=== PATIENT | female | born 1975 | race Caucasian/White ===

== ENCOUNTER 2016-08-28 20:30 | Emergency (ER) | payer MEDICAID ==
[2016-08-28 20:33] VITALS: BP 124/72; PULSE 72; RESP 20; TEMP 98.4; O2SAT 98
[2016-08-28] MEDS ORDERED: Oxycodone/Acetaminophen 5/325 mg Tab PO STA (20:40)
[2016-08-28] MEDS ORDERED: Oxycodone/Acetaminophen 5/325 mg Tab ONE (20:43)
--- NOTE | 2016-08-28 21:31 | C.PDOC ---
History Of Present Illness 41 year old patient presents to the ED complaining of twisting her left ankle since 7 am. Patient states this morning she was walking down the stairs in her apartment building. She slipped and fell down the "broken" stairs hurting her ankle. Patient has been walking on her leg. The pain progressive became worse in the afternoon which prompted the visit. Patient denies any other injuries, numbness or weakness. Time Seen by Provider: 08/28/16 20:33 Chief Complaint (Nursing): Lower Extremity Problem/Injury History Per: Patient History/Exam Limitations: no limitations Onset/Duration Of Symptoms: Hrs (7 am today) Current Symptoms Are (Timing): Still Present Pain Scale Rating Of: 8 Recent travel outside of the [place]: No Additional History Per: EMS, Family - Knee Alleviating Factor(s): Elevation - Ankle/Foot Description Of Injury: Fell, Twisted Currently Unable To: Other Past Medical History Reviewed: Historical Data, Nursing Documentation, Vital Signs Vital Signs: Last Vital Signs Temp 98.4 F 08/28/16 20:30 Pulse 72 08/28/16 20:30 Resp 20 08/28/16 22:18 BP 124/72 08/28/16 20:30 Pulse Ox 98 08/28/16 22:03 Family History: States: Unknown Family Hx - Social History Hx Alcohol Use: No Hx Substance Use: No Review Of Systems Except As Marked, All Systems Reviewed And Found Negative. Musculoskeletal: Positive for: Other (left ankle pain) Neurological: Negative for: Weakness, Numbness Physical Exam - Physical Exam Appears: Non-toxic Skin: Warm, Dry Head: Atraumatic, Normacephalic Eye(s): bilateral: Normal Inspection Oral Mucosa: Moist Neck: Normal ROM, Supple Chest: Symmetrical Extremity: Normal ROM, No Calf Tenderness, Other (left ankle: swelling, tenderness and ecchymosis to the lateral aspect of the malleolus; normal pulses ; good capillary refill) Neurological/Psych: Oriented x3, Normal Speech, Normal Cognition, Normal Motor, Normal Sensation Gait: Steady ED Course And Treatment O2 Sat by Pulse Oximetry: 98 (RA) Pulse Ox Interpretation: Normal - Other Rad left ankle X-Ray: Interpreted by Me, Viewed By Me Interpretation: positive avulsion fracture to the distal left fibula left tibia/fibula X-Ray: Interpreted by Me, Viewed By Me Interpretation: positive avulsion fracture to the distal left fibula Progress Note: Left ankle, and left tibia/fibula x-ray taken. Percocet given. Orthopedic Time Out: Side verified (Left side), Site verified Procedure: Splint Type: Short, Posterior Consent obtained: Verbal Performed by: Mid-level Provider (Douglas) Diagnosis: Fracture Capillary refill: Normal Distal Sensation: Normal Distal Motor Function: Normal Capillary Refill: Normal Compartment: Normal Distal Sensation: Normal Distal Motor Function: Normal Patient tolerated procedure: Well Disposition - Disposition Referrals: Edin Castro MD [Staff Provider] - [facility] [Outside] Disposition: HOME/ ROUTINE Disposition Time: 21:42 Condition: GOOD Additional Instructions: Follow up with the Orthopedist within 1-2 days without fail. Return if worsened. Prescriptions: Acetaminophen [Tylenol] 325 mg PO Q6 PRN #30 tab PRN Reason: Pain, Moderate (4-7) traMADol [Ultram] 50 mg PO Q6 PRN #20 tab PRN Reason: Pain Instructions: Ankle Fracture (ED) - Clinical Impression Clinical Impression: Ankle fracture - PA / CHANNEL LIP WETTER / Resident Statement MD/DO has reviewed & agrees with the documentation as recorded. - Scribe Statement The provider has reviewed the documentation as recorded by the Scribe Riri Macias All medical record entries made by the Scribe were at my direction and personally dictated by me. I have reviewed the chart and agree that the record accurately reflects my personal performance of the history, physical exam, medical decision making, and the department course for this patient. I have also personally directed, reviewed, and agree with the discharge instructions and disposition.
--- NOTE | 2016-08-29 13:30 | RAD ---
PROCEDURE: Radiographs of the left tibia and fibula. HISTORY: injury and twist of left ankle COMPARISON: None available. TECHNIQUE: Frontal and lateral views obtained. FINDINGS: BONES: No evidence of fracture. Please see report of left ankle. JOINT SPACES: Unremarkable. OTHER FINDINGS: None. IMPRESSION: Unremarkable radiographs of the left tibia and fibula.
--- NOTE | 2016-08-29 13:30 | RAD ---
PROCEDURE: Left Ankle Radiographs. HISTORY: injury and pain COMPARISON: None FINDINGS: BONES: Ovoid smoothly corticated ossific densities adjacent to distal fibula, likely old avulsion fracture fragments versus ununited secondary ossification centers. No acute fracture identified. JOINTS: Normal. No osteoarthritis. Ankle mortise maintained. Talar dome intact SOFT TISSUES: Lateral soft tissue swelling noted peer OTHER FINDINGS: None. IMPRESSION: No definite fracture. Probable old avulsion fractures versus ununited ossification centers adjacent to distal fibula. Lateral soft tissue swelling noted.
== END 2016-08-28 22:18 | disposition home or self-care (01) ==
LOC: C.ER 20:30
DX: S82.892A Other fracture of left lower leg, initial encounter for closed fracture (principal); W10.9XXA Fall (on) (from) unspecified stairs and steps, initial encounter; Y92.039 Unspecified place in apartment as the place of occurrence of the external cause

== ENCOUNTER 2016-10-12 11:16 | Day surgery (SDC) | payer MEDICAID ==
[2016-09-18 11:54] VITALS: BMI 27.3
[2016-10-12] MEDS ORDERED: ceFAZolin IV 1 gm in Dextrose 0 GM/0 ML BAG IVPB ONE (13:21)
[2016-10-12] MEDS ORDERED: Bupivacaine HCl 0.25% PF (10 ml) Inj ONE (13:21)
[2016-10-12] MEDS ORDERED: Lidocaine 1% Inj (20ml) ONE (13:21)
[2016-10-12] MEDS ORDERED: Bupivacaine 0.5% Inj(30mL) ONE (13:21)
[2016-10-12] MEDS ORDERED: ceFAZolin IV 2 gm in Dextrose 1 GM/50 ML BAG IVPB ONE (13:21)
[2016-10-12] MEDS ORDERED: Lactated Ringer's 1,000 ML IV ONE ×2 (13:45→15:30)
[2016-10-12] MEDS ORDERED: Midazolam 2 MG/2 ML VIAL ONE ×2 (13:46→13:48)
[2016-10-12] MEDS ORDERED: Propofol 10 mg/ml Inj (20 ML) ONE (13:49)
[2016-10-12] MEDS ORDERED: Dexamethasone 4 mg/1 ml ONE (14:47)
--- NOTE | 2016-10-12 15:10 | PCM.SURG1 ---
Surgeon's Initial Post Op Note - Surgeon's Notes Surgeon: Dr. Sands Auditor Supervisor: Malu Otoole PGY-2 Type of Anesthesia: IV Sedation, Local Pre-Operative Diagnosis: Left ankle avulsion fracture with rupture of lateral ankle ligament Operative Findings: see dictation. M: arthrex internal brace. 3-0 vicryl, 4-0 vicryl, 4-0 monocryl Post-Operative Diagnosis: same Operation Performed: left ankle excision of fracture fragment, internal brace Specimen/Specimens Removed: none Estimated Blood Loss: EBL {In ML}: 0 Blood Products Given: N/A Drains Used: No Drains Post-Op Condition: Good Date of Surgery/Procedure: 10/12/16 Time of Surgery/Procedure: 02:15
[2016-10-12] MEDS ORDERED: Oxycodone/Acetaminophen 5/325 mg Tab PO PRN ×2 (15:11)
[2016-10-12] MEDS ORDERED: HYDROmorphone 0.5 mg/0.5 ml ISec IVP ONE (15:26)
[2016-10-12] MEDS: HYDROmorphone 0.5 mg/0.5 ml ISec IVP PRN ×2 (15:33→15:34)
[2016-10-12 17:14] VITALS: RESP 18; O2SAT 98
[2016-10-12 19:05] VITALS: BP 115/72; PULSE 76; TEMP 98
--- NOTE | 2016-10-13 11:35 | OP ---
PROCEDURE DATE: 10/12/2016 SURGEON: Dr. Karen Sands [employer] ATTENDANT: Malu Otoole, PGY-2 PREOPERATIVE DIAGNOSES: 1. Left ankle lateral malleolar avulsion fracture. 2. Left ankle calcaneofibular ligament rupture. POSTOPERATIVE DIAGNOSES: 1. Left ankle lateral malleolar avulsion fracture. 2. Left ankle calcaneofibular ligament rupture. NAME OF PROCEDURES: 1. Left ankle excision of fracture fragment. 2. Left ankle lateral ligament repair with internal brace. ANESTHESIA: General LMA. ANESTHESIOLOGIST: Dr. Albert INDICATIONS: The patient is a 41-year-old female with the above-mentioned diagnoses. The patient has exhausted conservative treatment at this time and is now requesting surgical intervention. The patient signed the consent after careful explanation of risks, benefits, complications and alternatives for surgical procedure. No guarantees were given nor implied. Ancef 2 g IV was given to the patient prior to the procedure. N.p.o. status was confirmed prior to taking the patient to the operating room. PREPARATION: The patient was brought into the operating room and placed on the operating room table in supine position. A well-padded pneumatic thigh tourniquet was placed to the patient's left thigh. After induction of anesthesia, the left lower extremity was prepped and draped in the usual sterile manner and the procedure began. PROCEDURE #1: Left ankle excision of fracture fragment. Attention was directed to the anterolateral aspect of the left ankle where a 3.5 cm curvilinear incision was created overlying the anterior aspect of the fibula and extending distally to the apex of the fibula. This incision was deepened down through the subcutaneous tissues with care being taken to identify and retract all vital neurovascular structures. All bleeders were cauterized and ligated as necessary. At this time, a periosteal and capsular incision was created overlying the distal aspect of the fibula. The capsular and periosteal structures were reflected laterally, thus exposing the distal portion of the fibula and also the fracture fragment into the operative site. Next, the fracture fragment was identified and it was dissected free from the underlying soft tissue and passed from the operative field. Next, the wound was copiously irrigated with normal sterile saline. The area was palpated using a [place] elevator to ensure that all loose pieces of bone had been successfully removed. PROCEDURE #2: Left lateral ankle ligament repair using Arthrex internal brace. Via the original incision, the distal aspect of the fibula and the lateral aspect of the talar body were identified. Using a #15 blade, the periosteal and capsular structures were reflected medially off of the lateral body of the talus. Once the talus and fibula were visualized, the 3.4 mm drill bit was drilled into the nonarticulating surface of the talus in line with the superior aspect of the ligaments, directed 40 degrees with respect to the lateral border of the foot into the body of the talus. Distal hole was tapped using the 4.75 mm tap. Next, the 4.75 mm SwiveLock anchor was loaded with FiberTape and placed into the talar hole. The sprinkling truck driver was driven into the hole until the implant was seated. Next, the fibular tunnel was drilled approximately 2 cm proximal to the distal tip of the fibula using the 3.4 mm drill bit and this hole was then tapped with the 3.5 mm, tapped half-way. The FiberTape suture was then passed through the eyelet of the 3.5 mm SwiveLock anchor. This was then tensioned to ensure that over-tightening was not created. Next, the SwiveLock anchor was driven into the fibular hole and the remaining FiberTape was cut using a #15 blade. The correction and tensioning were assessed and noted to be excellent. At this time, the wound was copiously irrigated with normal sterile saline. The capsular structures were reapproximated and coapted using 3-0 Vicryl, subcuticular closure was done using 4-0 Vicryl and skin was closed using 4-0 Monocryl in running subcuticular fashion. A total of 15 mL of 0.25% Marcaine was injected in in a local block fashion following the procedure. The wound was dressed using Steri-Strips, Xeroform, 4 x 4s, Col[place], and a posterior splint was applied. POSTOPERATIVE CONDITION: The patient tolerated the anesthesia and procedure well and was escorted to the recovery room with vital signs stable and neurovascular status intact to the left foot. This patient will follow up with Dr. Sands in the podiatry clinic next week. Malu Kuizinas DPM Karen Sands DPM cc: [id number] TT: 10/13/2016 11:34:45 en MTDD
--- NOTE | 2016-10-13 11:59 | RAD ---
PROCEDURE: Left Ankle Radiographs. HISTORY: s/p left ankle excision of fracture COMPARISON: Left ankle radiographs performed 08/28/16 FINDINGS: BONES: No acute displaced fracture. Probable old avulsion fractures versus ununited ossification centers adjacent to distal fibula. JOINTS: No dislocation. SOFT TISSUES: Soft tissue swelling. Subcutaneous emphysema. No evidence of radiopaque foreign body. OTHER FINDINGS: None. IMPRESSION: Soft tissue swelling. Subcutaneous emphysema. No acute displaced fracture identified. Probable old avulsion fractures versus ununited ossification centers adjacent to distal fibula.
== END 2016-10-12 18:20 | disposition home or self-care (01) ==
LOC: C.SDS 11:16
PROVIDERS: ATTEND Podiatrist Foot & Ankle Surgery
DX: S82.62XP Displaced fracture of lateral malleolus of left fibula, subsequent encounter for closed fracture with malunion (principal); M25.372 Other instability, left ankle; S92.022K Displaced fracture of anterior process of left calcaneus, subsequent encounter for fracture with nonunion; W10.9XXD Fall (on) (from) unspecified stairs and steps, subsequent encounter
CPT/HCPCS: 11044; 27786; 73600; C1713; J0690; J1100; J1170; J2250; J2704; J3010; J7120

== ENCOUNTER 2016-10-14 21:21 | Emergency (ER) | payer MEDICAID ==
[2016-10-14 21:22] VITALS: BMI 27.3
[2016-10-14 21:30] VITALS: BP 116/80; PULSE 68; TEMP 97.5; O2SAT 100
--- NOTE | 2016-10-14 22:50 | C.PDOC ---
History Of Present Illness 41 y/o female s/p left ankle ORIF by podiatry Dr. Sands 2 days ago, splint in place, is here complaining of persistent pain in spite ofpain meds. No numbness or weakness. Patient and family are unsure of which medication she las took as, per family at bedside, she has been "taking them all." Patient did try to follow up with Dr. Sands, but was unable as she was not able to contact the office. No other complaints. Time Seen by Provider: 10/14/16 21:48 Chief Complaint (Nursing): Lower Extremity Problem/Injury History Per: Patient History/Exam Limitations: no limitations Onset/Duration Of Symptoms: Days (2) Current Symptoms Are (Timing): Still Present Severity: Moderate Recent travel outside of the [place]: No Additional History Per: Patient Past Medical History Vital Signs: Last Vital Signs Temp 97.5 F L 10/14/16 21:27 Pulse 68 10/14/16 21:27 Resp 20 10/14/16 23:02 BP 116/80 10/14/16 21:27 Pulse Ox 100 10/15/16 03:10 - Medical History PMH: Fractures (FX. LEFT ANKLE-POST FALL FROM STAIRS) Surgical History: Appendectomy Family History: States: Unknown Family Hx - Social History Hx Alcohol Use: No Hx Substance Use: No - Immunization History Hx Tetanus Toxoid Vaccination: No Hx Influenza Vaccination: No Hx Pneumococcal Vaccination: No Review Of Systems Except As Marked, All Systems Reviewed And Found Negative. Musculoskeletal: Positive for: Leg Pain Neurological: Negative for: Weakness, Numbness Physical Exam - Physical Exam Appears: Non-toxic, No Acute Distress Skin: Normal Color, Warm, Dry Eye(s): bilateral: Normal Inspection Extremity: No Normal ROM (splint in place left ankle - appears intact. ), No Calf Tenderness, No Deformity, No Swelling, Other (splint in place. Toes visualized with good color, normal cap refill, sensation intact. No ecchymosis, erythema, swelling) Pulses: Left Dorsalis Pedis: Normal Neurological/Psych: Oriented x3, Normal Sensation ED Course And Treatment O2 Sat by Pulse Oximetry: 100 (RA) Pulse Ox Interpretation: Normal Progress Note: Pt with no signs of compartment syndrome. Discussed pain management with patient. She was given Toradol IM. On reevaulation she was resting comfortably and conversing easily with family at bedside. Recommended stopping Tylenol and Toradol, instructed her to use Percocet for pain. She should follow up with Dr. Sands. All questions answered. Patient discharged in stable condition. Disposition Doctor Will See Patient In The: Office Counseled Patient/Family Regarding: Diagnosis, Need For Followup - Disposition Referrals: Karen Sands DPM [Primary Care Provider] - Disposition: HOME/ ROUTINE Disposition Time: 22:47 Condition: STABLE Additional Instructions: tomorrow Please follow up with cleaner carpet and upholstery - Dr Sands Continue Percocet May add advil to percocet tablets as needed Do not take tramadol and tylenol while taking percocet Elevate leg Return to ER if wprse Instructions: Ankle Fracture (ED) Forms: Work Excuse - Clinical Impression Clinical Impression: Ankle pain, left, S/P surgical manipulation of ankle joint - Scribe Statement The provider has reviewed the documentation as recorded by the Scribe Ashley Spain
[2016-10-14 23:03] VITALS: RESP 20
== END 2016-10-14 23:02 | disposition home or self-care (01) ==
LOC: C.ER 21:21 → SUPCPDRO 21:21 → C.ER 23:02
DX: G89.18 Other acute postprocedural pain (principal); M25.572 Pain in left ankle and joints of left foot
CPT/HCPCS: 96372; 99284; J1885

== ENCOUNTER 2017-03-04 06:35 | Day surgery (SDC) | payer MEDICAID ==
[2017-03-03 13:24] VITALS: BMI 28.3
[2017-03-04] MEDS ORDERED: Lidocaine 1% Inj (20ml) ONE (07:33)
[2017-03-04] MEDS ORDERED: Bupivacaine HCl 0.5% PF (10 ml) Inj ONE (07:33)
[2017-03-04] MEDS ORDERED: Midazolam 2 MG/2 ML VIAL ONE (07:50)
[2017-03-04] MEDS ORDERED: Propofol 10 mg/ml Inj (20 ML) ONE (07:51)
[2017-03-04] MEDS ORDERED: Lactated Ringer's 1,000 ML IV ONE (07:55)
[2017-03-04] MEDS ORDERED: ceFAZolin IV 1 gm in Dextrose 1 GM/50 ML BAG IVPB ONE (08:18)
[2017-03-04] MEDS ORDERED: HYDROmorphone 0.5 mg/0.5 ml ISec IVP PRN (08:31)
[2017-03-04] MEDS ORDERED: Dexamethasone 4 mg/1 ml ONE (09:56)
--- NOTE | 2017-03-04 10:16 | PCM.SURG1 ---
Surgeon's Initial Post Op Note - Surgeon's Notes Surgeon: Dr. Karen Sands DPM Recycling Or Rubbish Collector: Dr. Antolin Bermeo DPM PGY1 Type of Anesthesia: General LMA Anesthesia Administered By: Dr. Jaime Pre-Operative Diagnosis: painful hardware of left ankle Operative Findings: see dications. materials: 2-0 fiberwire, 4-0 vicryl, 4-0 monocril, 1 cc of dexamethasone, bone substitute, intraoperative injection- 10cc of .5% marcaine plain Post-Operative Diagnosis: painful hardware left ankle Operation Performed: left ankle removal of hardware and revision repair of modified brostrom Specimen/Specimens Removed: hardware Estimated Blood Loss: EBL {In ML}: 10 Blood Products Given: N/A Drains Used: No Drains Post-Op Condition: Good Date of Surgery/Procedure: 03/04/17 Time of Surgery/Procedure: 07:45
[2017-03-04] MEDS ORDERED: Oxycodone/Acetaminophen 5/325 mg Tab PO PRN ×2 (10:26)
--- NOTE | 2017-03-04 11:00 | CP.SDSHP ---
Same Day Surgery H & P - History Proposed Procedure: left ankle hardware removal and revisional of modified brostrom Pre-Op Diagnosis: painful hardware left ankle - Allergies Allergies: Allergies No Known Allergies Allergy (Verified 10/14/16 21:25) - Physical Exam Vital Signs: Vital Signs 03/04/17 03/04/17 03/04/17 07:02 10:11 10:30 Temperature 97.4 F L 97.3 F L Pulse Rate 85 75 75 Respiratory 18 14 13 Rate Blood Pressure 110/81 131/86 127/88 O2 Sat by Pulse 97 100 100 Oximetry 03/04/17 10:45 Temperature Pulse Rate 70 Respiratory 15 Rate Blood Pressure 128/83 O2 Sat by Pulse 100 Oximetry - Impression Impression: Pt was seen and examined in SDS. Pt NPO status confirmed. All Pre- op testing and clearance was in the cahrt. Pt has exhaused all conservative treatment at this time and is opting for surgical intervention. Pt was explained procedure and post-operative course. All pt's questions were answered to satisfaction. No guarantees were made. Pt understands all risks, benefits and complications of procedure. Pt will follow-up with Dr. Sands - Date & Time Date: 03/04/17 Time: 07:30 Short Stay Discharge - Short Stay Discharge Admitting Diagnosis/Reason for Visit: PAIN DUE TO HARDWARE Disposition: HOME/ ROUTINE Follow-up: with Dr. Sands in clinic in 1 week. Please call for an appointment Instructions: Cephalexin (By mouth), Oxycodone/Acetaminophen (By mouth), RICE Therapy (GEN) Additional Instructions (Diet, Activity): Patient is in good/stable condition for discharge home. Pt to resume medications per medical reconciliation. Resume regular diet. Please keep dressing clean, dry, and intact to srugical site, use plastic bag over bandage for showering, wear post op shoe at all times when ambulating, call clinic if you see signs of infection (redness, swelling, malodor), pleaes make an appointment to see Dr. Sands in clinic within 1 week for post-op check. Progress Note/Discharge Note with Instructions: Pt evaluated bedside in recovery s/p surgical procedure After surgical procedure patient in NAD + void, + appetite SPRING PRODUCTION SUPERVISOR <3 seconds and NVSI intact Patient denies complaints at this time Post operative instructions and plan of care explained to patient at length. Pt acknowledges understanding Pt stable for DC per podiatric surgery
[2017-03-04 13:23] VITALS: BP 116/71; PULSE 68; RESP 18; TEMP 98; O2SAT 99
--- NOTE | 2017-03-04 15:23 | RAD ---
PROCEDURE: Left Foot Radiographs. HISTORY: s/p left ankle surgery -the reason for the surgery is unclear. The last left ankle study from 10/12/2016 offered history status post left ankle excision of fracture Prior to the left ankle study from 08/28/2016 described well corticated ossific densities relating to likely old osseous avulsion fracture fragments bordering the distal fibula. COMPARISON: 10/12/2016 FINDINGS: BONES: Exam is markedly limited due to casting/plenty material. On the lateral view there is diffuse osteopenia throughout the foot. No gross fracture no gross periosteal reactions seen. The osteopenia markedly limits optimal evaluation. Correlation with the site of surgery is recommended. JOINTS: First metatarsal-phalangeal joint arthrosis SOFT TISSUES: Diffuse minimal soft tissue swelling medial hindfoot a forefoot swelling most notable OTHER FINDINGS: None. IMPRESSION: Limited exam -specific surgical procedure unclear ; generalized osteopenia -no gross fracture no gross periosteal reaction. The demineralization limits optimal evaluation for both. First metatarsal-phalangeal joint arthrosis Comments: If needed consider further evaluation with MRI of the left foot
--- NOTE | 2017-03-04 16:36 | RAD ---
PROCEDURE: Left Ankle Radiographs. HISTORY: s/p left ankle surgery PACU s/p left ankle surgery -the reason for the surgery is unclear. The last left ankle study from 10/12/2016 offered history status post left ankle excision of fracture COMPARISON: None FINDINGS: BONES: Exam is markedly limited due to casting/ splinting material. On the lateral view there is diffuse osteopenia throughout the foot. No gross fracture no gross periosteal reactions seen. The osteopenia markedly limits optimal evaluation. Correlation with the site of surgery is recommended. JOINTS: Mild osteoarthritis. Ankle mortise maintained. Talar dome grossly intact SOFT TISSUES: Circumferential subcutaneous edema OTHER FINDINGS: None. IMPRESSION: Limited exam for reasons stated above. No gross periosteal reaction. Marked osteopenia Comments: If needed consider further evaluation with MRI of the left ankle
--- NOTE | 2017-03-07 03:34 | OP ---
PROCEDURE DATE: PREOPERATIVE DIAGNOSIS: Painful left hardware. POSTOPERATIVE DIAGNOSIS: Painful left hardware. NAME OF THE PROCEDURE: Left ankle hardware removal and the revision of repair of modified Brostrom. SURGEON: Karen Sands DPM PROGRAM DIRECTOR/MORNING SHOW HOST: Antolin Bermeo DPM, PGY1 TYPE OF ANESTHESIA: General LMA. ANESTHESIA ADMINISTERED BY: Geovani Jaime MD INDICATIONS: The patient is a 41-year-old female who previously underwent left ankle excision of fracture fragment and a a modified Brostrom with internal brace of left ankle on 10/12/2016. The patient is experiencing pain of the left ankle most likely caused by hardware. The patient has exhausted all conservative treatment at this time and now requires surgical intervention. The patient signed the consent after careful explanation of risks, benefits, complications, and alternatives for surgical procedure. No guarantee was given nor implied. N.p.o. status was confirmed prior to taking the patient to the OR. DESCRIPTION OF PROCEDURE: The patient was brought into the operating room and placed on the operating room table in a supine position. A time-out was performed for identification of the correct patient and procedure. After anesthesia is achieved, the patient received a total of 18 mL of 1:1 mixture of 2% lidocaine plain and 0.5% Marcaine plain in local block fashion to the lateral left ankle. Once local anesthesia was achieved, the left ankle and foot was then prepped and draped in a normal sterile manner. The patient's left foot was then exsanguinated with elevation and the pneumatic ankle tourniquet was inflated to 250 mmHg and the procedure began. Attention was directed to the lateral aspect of the left ankle overlying where the anterior talofibular ligament is located. A curvilinear incision was created overlying the ATFL location at the level of the lateral gutter of the ankle joint. The incision was carried through subcutaneous tissue with care being taken to identify all vital neurovascular structures. All bleeders were cauterized and ligated as necessary. Utilizing a #15-blade, the capsular structures were incised in a vertical fashion overlying the sinus tarsi. Once the capsular structure were incised, it was noted that the lateral ankle internal brace is intact. Using a second scissor, fibers and soft tissues were carefully dissected away from the internal brace to its insertion at the tip of the fibular and nonarticular surface of the talus at the talar neck. Hardware was examined to see if the hardware violated the ankle joint and there was not. At this time , the ankle joint was inverted in the articular cartilage and lateral gutter were inspected for any lesions and there were none. Using a freer, any bony overgrowth were removed over the distal fibula at the proximal SwiveLock insertion. A K-wire was used to identify the exact location of the SwiveLock by inserting the K-wire in the hole of the SwiveLock. Using a #10 and #11 blade, the SwiveLock was further loosen, a hemostat was used to remove the loosened SwiveLock from its insertion. During this time, the ATFL was identified and using hemostat the proximal detachment was clamped down for identification. Attention was directed to the lateral aspect of the talar neck at the distal SwiveLock insertion. A K-wire was used to identified the exact location of the proximal SwiveLock by inserting the K-wire into the hole of the SwiveLock. Using a #10 and #11 blade and dissecting scissors, the SwiveLock was further loosened. A hemostat was used to remove the loosened SwiveLock in its insertion. Now, the entire internal brace is removed from the patient's ankle. The hardware was passed off the operating field and sent to pathology for examination. Next, the site was copiously irrigated using saline solution and bacitracin mixture. Next, using a K-wire, a hole was drilled at the distal fibula connecting the proximal hole made from the removal of the proximal SwiveLock. Then, 2-0 FiberWire was passed through the hole and sutured in through the multiple throws through the proximal end of the ATFL. While performing this technique, the foot was placed in the dorsal flexion and everted position as sutures were tied down, which allow reapproximation and tightening of the ATFL. Now, the ATFL was repaired and reconstructed. The ankle was stretched in eversion and inversion with excellent stability noted. The surgical site is copiously irrigated with a mixture of saline solution and bacitracin. A total of 1 mL of bone putty was used to fill any bone defect secondary to removal of the SwiveLock from their insertion. The capsular structures were reapproximated and coapted using a 3-0 Vicryl. Subcuticular closure was done using a 4-0 Vicryl and skin was closed using 4-0 Monocryl in running subcuticular fashion. A total of 10 mL of 0.5% Marcaine plain was injected surrounding the surgical site. A total of 1 mL of dexamethasone was injected surrounding the surgical site. The surgical site was dressed using Steri-Strips, Xeroform, 4 x 4 gauze, Colton, and Kerlix. Posterior splint was then applied to the left lower extremity while maintaining the ankle at the 90 degrees of dorsiflexion. POSTOPERATIVE CONDITION: The patient tolerated the anesthesia and procedure well and was then escorted to the recovery room with vital signs stable and neurovascular status intact to the left foot and ankle. The patient will follow up with Dr. Sands in clinic upon discharge. Antolin Bermeo DPM Karen Sands DPM [id number]
== END 2017-03-04 12:45 | disposition home or self-care (01) ==
LOC: C.SDS 06:35
PROVIDERS: ATTEND Podiatrist Foot & Ankle Surgery
DX: T84.84XA Pain due to internal orthopedic prosthetic devices, implants and grafts, initial encounter (principal)
CPT/HCPCS: 20680; 73610; 73620; 88300; C1713; J0690; J1100; J2250; J2704; J3010; J7120